=== PATIENT | female | born 1970 | race Caucasian/White ===

== ENCOUNTER 2018-12-24 10:50 | Outpatient (CLI) | payer BC, SELFPAY ==
[2018-12-24 12:13] LABS: Abs Immature Grans 0.01 k/cumm (0.0-0.09); Absolute Basophil Count 0.03 k/cumm (0.0-0.2); Absolute Eosinophil Count 0.11 k/cumm (0.0-0.7); Absolute Lymphocyte Count 1.81 k/cumm (1.2-3.4); Absolute Monocyte Count 0.31 k/cumm (0.11-0.7); Absolute Neutrophil Count 2.02 k/cumm (1.2-6.7); Basophils % 0.7; Eosinophils % 2.6; HCT 37.4 % (36.0-46.0); HGB 12.5 g/dL (12.0-15.5); Immature Grans % 0.2; Lymphocytes % 42.2; Mean Corp. HGB Concentration 33.4 g/dL (32.0-36.0); Mean Corpuscular Hemoglobin 30.9 pg (27.0-33.0); Mean Corpuscular Volume 92.6 fL (80-95); Mean Platelet Volume 11.6 fL (8.0-11.0); Monocytes % 7.2; Neutrophils % 47.1; Platelet Count 213 x1000/uL (130-400); RBC 4.04 m/cumm (4.00-5.20); RBC Distribution Width 13.3 % (11.7-14.6); White Blood Cell Count 4.29 k/cumm (4.4-10.8)
[2018-12-24 12:39] LABS: Iron 146 ug/dL (50-175)
[2018-12-24 13:07] LABS: CREATININE 0.62 mg/dL (0.55-1.02); Calcium 8.7 mg/dL (8.5-10.1); Ferritin 127 ng/mL (8-388); Vitamin B12 748 pg/mL (193-986)
[2018-12-26 07:09] LABS: Vitamin D 25 Total 54.2 ng/ml (30-100)
[2018-12-26 12:29] LABS: Parathyroid Hormone,Intact 58 pg/ml (19-88)
[2018-12-27 19:43] LABS: Thiamine (Vitamin B1), WB 112 nmol/L (70-180)
== END 2018-12-24 11:10 ==
PROVIDERS: PCP Family Medicine; Visit Provider Physician Assistant
DX: K91.2 Postsurgical malabsorption, not elsewhere classified (principal); Z98.84 Bariatric surgery status; E66.9 Obesity, unspecified
CPT/HCPCS: 36415; 82306; 82310; 82565; 82607; 82728; 83540; 83970; 84425; 85025

== ENCOUNTER 2019-05-26 07:03 | Day surgery (SDC) | payer BC, SELFPAY ==
[2019-05-26 07:22] VITALS: BP 107/61; PULSE 64; RESP 16; TEMP 36.5; O2SAT 100
[2019-05-26] MEDS: Lactated Ringers 1,000 ML 80 ML IV (07:35)
--- NOTE | 2019-05-26 08:03 | W.PM.DSUDISC ---
Discharge Plan Disposition Patient Disposition: HOME Condition: Good Discharge Details Reason For Visit: Colonoscopy Attending Provider: Winsome Francis Primary Care Provider: Mario Amaro Home Meds and New Rx's Prescriptions: Discontinued polyethylene glycol 3350 17 gram/dose powder 238 g PO ONCE Qty: 238 RF: 0 bisacodyl [Dulcolax (bisacodyl)] 5 mg tablet,delayed release (DR/EC) 5 mg PO ONCE Qty: 4 RF: 0 No Action multivitamin [Daily Multi-Vitamin] Tablet 1 tab PO DAILY RF: 0 cholecalciferol (vitamin D3) 5,000 unit capsule 5,000 unit PO DAILY RF: 0 calcium carbonate [Calci-Chew] 500 mg calcium (1,250 mg) tablet,chewable 500 mg PO DAILY RF: 0 vitamin B complex [B Complex-Vitamin B12] Tablet 1 tab PO DAILY RF: 0 [facility] 750 mg-100 mg- 1.65 mg-108 mg tablet 1 tab PO DAILY RF: 0 Discharge Instructions Additional Instructions: Findings: Your colonoscopy showed diverticulosis. Follow up: Plan for routine screening colonoscopy in 10 years or sooner if symptoms arise. Please call if you develop: fevers >101.5 Nausea or Vomiting Abdominal pain that is not transient DAY SURGERY UNIT POST COLONOSCOPY INSTRUCTIONS 1. Because there will be medication in your system for the next 24 hours, you may feel a little sleepy. Your coordination will be affected. Therefore: a. Do not drive or operate dangerous equipment for 24 hours. b. Do not drink alcohol beverages for 24 hours (not even beer). c. Plan to go home and rest for the day. 2. Generally there are no restrictions on your activity after a day or so has gone by, but you may feel a bit fatigued for a few days. 3 After you arrive home you may have a light meal and return to a normal diet as you can tolerate it without feeling sick to your stomach. 4. After surgery, you may feel pain or discomfort. This should be only transient, but if it persists please contact your doctor. 5. If there are any questions regarding the findings of your procedure, please feel free to contact your doctor. 6. If you are unable to contact your doctor with a problem, contact the hospital at [phone]. 7. Continue all your regular medications unless directed otherwise. I understand the above instructions and have no questions. Signature of Patient or Responsible Adult Escort Date/Time Name of Responsible Adult Escort Signature of Nurse Date/Time Activity:: Activity as Tolerated Diet:: As Tolerated Discharge Orders Discharge Orders: Discharge Order (Routine); Ordered 05/26/19 Ordered By: Winsome Francis DS: Diagnosis Discharge Diagnosis (1) Diverticulosis: Status: Acute
[2019-05-26 09:26] VITALS: BP 100/60; PULSE 56; RESP 16; TEMP 36.4; O2SAT 100
--- NOTE | 2019-05-26 10:42 | COLE_ITS ---
DATE OF PROCEDURE: May 26, 2019 PREOPERATIVE DIAGNOSIS: Screening. POSTOPERATIVE DIAGNOSIS: Diverticulosis. PROCEDURE: Colonoscopy. SURGEON: Winsome Francis M.D. ANESTHESIA: General. INDICATIONS: This is a 48-year-old woman who presents for her first screening colonoscopy. She is a symptomatic and has no family history of colon cancer. PROCEDURE: She was placed in the left [place] position. Propofol was titrated to sedation. Digital re ctal examination revealed no abnormalities. The scope was advanced to the cecum without difficulty. The ileocecal valve was briefly intubated to reveal a normal distal ileum. Her prep was good. The patient was noted to have diverticulosis scattered throughout the entire colon and most prominently n oted in the sigmoid region. The scope was slowly withdrawn with no other abnormalities seen within t he ascending, transverse, descending, sigmoid colon or rectum, including on retroflex view. She tole rated the procedure well and was stable to recovery. She will need a follow-up screening again in ten years or sooner if symptoms indicate. cc: Mario Amaro M.D.
== END 2019-05-26 09:55 | disposition home or self-care (01) ==
PROVIDERS: PCP Family Medicine; Visit Provider Surgery
PROC: 0DJD8ZZ Inspection of Lower Intestinal Tract, Via Natural or Artificial Opening Endoscopic (ICD-10-PCS; CPT 45378; principal; 2019-05-26 08:15)
DX: Z12.11 Encounter for screening for malignant neoplasm of colon (principal); K57.30 Diverticulosis of large intestine without perforation or abscess without bleeding
CPT/HCPCS: 45378

== ENCOUNTER 2020-04-08 11:19 | Outpatient (REF) | payer SELFPAY ==
[2020-04-09 20:50] LABS: COVID-19 RT-PCR Result NEGATIVE (Negative)
== END 2020-04-08 11:39 ==
LOC: NCHCN 11:19
PROVIDERS: PCP Family Medicine; Visit Provider Nurse Practitioner Family
DX: Z20.828 Contact with and (suspected) exposure to other viral communicable diseases (principal)
CPT/HCPCS: U0003